=== PATIENT | female | born 1960 | race Caucasian/White ===

== ENCOUNTER 2017-10-11 17:32 | Emergency (ER) | payer OTHER, SELFPAY ==
[2017-10-11 17:40] VITALS: BP 145/101; PULSE 99; RESP 20; TEMP 36.3; O2SAT 99; BMI 29.0
--- NOTE | 2017-10-11 18:32 | DI.RAD.S_ITS ---
PROCEDURE: XR RIBS LT MIN 3V W CXR1V INDICATIONS: fall with posterior L rib pain TECHNIQUE: 2 views of the left ribs were acquired, along with a single view chest. COMPARISON: None. FINDINGS: Surgical changes and devices: None. Bones and chest wall: No fractures or dislocations. No suspicious bony lesions. Overlying soft tissues appear unremarkable. Lungs and pleura: No pleural effusions or pneumothorax. Lungs appear clear. Mediastinum: Mediastinal contours appear normal. Heart size is normal. IMPRESSION: Reduced inspiratory volume bilaterally, no trauma found. The imaging is somewhat limited by reduced inspiration and light film technique. If unusual symptoms persist followup by delayed plain films through the area of concern could be repeated. Dictated by: Greg Valera M.D. on 10/11/2017 at 18:59 Approved by: Greg Valera M.D. on 10/11/2017 at 19:00
[2017-10-11] MEDS: HYDROCODONE/ACET 5/325 TABLET 1 TAB PO (18:39)
--- NOTE | 2017-10-11 19:09 | ED_ITS ---
HPI - Fall General Chief Complaint: Fall Stated Complaint: FELL AND HURT RIBS Time Seen by Provider: 10/11/17 18:00 Source: patient Mode of arrival: ambulatory Limitations: no limitations History of Present Illness HPI Narrative: patient presents to the emergency department this evening with her and a chief complaint left-sided posterior rib pain after mechanical fall earlier today. She denies any head neck pain. She has no shortness of breath and is otherwise well and free of complaint MD complaint: fall Onset (ago): minute(s) Fall from: standing Fall witnessed: yes, by family Place fall occurred: home Loss of consciousness: none Prolonged down time: no Symptoms prior to fall: none Context: tripped/slipped Location of injury: chest Severity: moderate Associated symptoms (after fall): denies Related Data Previous Rx's Medication Instructions Recorded hydrocodone-acetaminophen 1 tab PO Q4-6H PRN #14 tab 10/11/17 ibuprofen 600 mg PO QID PRN #20 tab 10/11/17 Allergies Allergy/AdvReac Type Severity Reaction Status Date / Time No Known Drug Allergies Allergy Verified 10/11/17 17:44 Review of Systems Review of Systems All systems reviewed & are unremarkable except as noted in HPI and below Constitutional Denies chills, Denies fever(s), Denies lethargy and Denies weakness Eyes Denies change in vision, Denies eye discharge, Denies irritation and Denies loss of vision Cardiovascular Denies chest pain, Denies irregular heart rhythm, Denies lightheadedness, Denies palpitations, Denies dyspnea, Denies dyspnea on exertion and Denies orthopnea Respiratory Denies cough, Reports pain on inspiration, Denies dyspnea, Denies dyspnea on exertion and Denies wheezing Gastrointestinal Gastrointestinal: Denies abdominal pain, Denies change in bowel habits, Denies diarrhea, Denies nausea and Denies vomiting Genitourinary Denies hematuria, Denies flank pain, Denies urinary incontinence and Denies urinary urgency Musculoskeletal Denies back pain, Denies muscle weakness, Denies numbness and Denies tingling Integumentary/Breasts Denies pruritus, Denies erythema, Denies rash and Denies wounds Neurologic Denies confusion, Denies loss of vision, Denies numbness, Denies tingling and Denies weakness Psychiatric Denies anxiety, Denies confusion, Denies depression, Denies homicidal ideation and Denies suicidal ideation Endocrine Denies palpitations Allergic/Immunologic Denies wheezing Exam Initial Vital Signs Initial Vital Signs: Vital Signs Temperature 97.3 F L 10/11/17 17:40 Pulse Rate 99 H 10/11/17 17:40 Respiratory Rate 20 10/11/17 17:40 Blood Pressure 145/101 H 10/11/17 17:40 Pulse Oximetry 99 10/11/17 17:40 Const General: cooperative and well developed Nutritional Appearance: well nourished Orientation: alert, awake, oriented x3 and not confused HENOH Head: normocephalic and atraumatic Ears: external ears normal and TM's normal bilaterally Nose: external nose normal and No nasal discharge Face and sinus: sinuses nontender, face symmetric, no sinus tenderness and No dry mucous membranes Mouth: oral mucosae normal and moist mucous membranes Teeth and gingiva: dentition normal Throat: tonsils normal and uvula midline Neck Neck: normal visual inspection, trachea midline, No lymphadenopathy, No midline deformity and No JVD Lymphatic: No lymphedema Chest Chest: localized rib tenderness with anteroposterior compression Resp Effort & Inspection: normal respiratory effort, able to speak in complete sentences, no respiratory distress and no use of accessory muscles Auscultation: clear to auscultation bilaterally, no rales, no rhonchi and no wheezes GI Inspection: non-distended Palpation: soft, no hepatosplenomegaly, No guarding, No pulsatile mass and No tender Auscultation: normal bowel sounds Skin General: no rashes or lesions noted, No jaundice and No petechiae Extrem General: full ROM, no clubbing, cyanosis or edema, no pedal edema and no calf tenderness Psych Appearance: well kempt Mental Status: mental status grossly normal Attitude: cooperative Thought Content: normal and suicidality Judgment: judgment good [facility] Medical History Diabetes 1.5, managed as type 2 (Acute) Fibromyalgia (Acute) HTN (hypertension) (Acute) Social History Smoking Status: Never smoker Course Orders Ordered: ED Orders 10/11/17 18:32 XR ribs LT min 3V w CXR1V Stat Discontinued Medications Hydrocodone Bitart/Acetaminophen ([place] 5/325) 1 tab PO NOW ONE Stop: 10/11/17 18:33 Last Admin: 10/11/17 18:39 Dose: 1 tab Reevaluation(s) Reevaluation #1: slight improvement after Hydrocodone. RT called for incentive spirometer and bedside teaching Time: 19:11 Vital Signs - 8 hr 10/11/17 17:40 10/11/17 19:38 Temperature 97.3 F L Pulse Rate 99 H 105 H Respiratory Rate 20 14 Blood Pressure 145/101 H 164/95 H Pulse Oximetry 99 100 MDM - Fall Imaging Data Chest x-ray: Attestation: I personally reviewed and interpreted this imaging study as follows: My impression: NAP Radiologist's impression: PROCEDURE: XR RIBS LT MIN 3V W CXR1V INDICATIONS: fall with posterior L rib pain TECHNIQUE: 2 views of the left ribs were acquired, along with a single view chest. COMPARISON: None. FINDINGS: Surgical changes and devices: None. Bones and chest wall: No fractures or dislocations. No suspicious bony lesions. Overlying soft tissues appear unremarkable. Lungs and pleura: No pleural effusions or pneumothorax. Lungs appear clear. Mediastinum: Mediastinal contours appear normal. Heart size is normal. IMPRESSION: Reduced inspiratory volume bilaterally, no trauma found. The imaging is somewhat limited by reduced inspiration and light film technique. If unusual symptoms persist followup by delayed plain films through the area of concern could be repeated. Dictated by: Greg Valera M.D. on 10/11/2017 at 18:59 Approved by: Greg Valera M.D. on 10/11/2017 at 19:00 Discharge Plan Departure Patient Disposition: Home, Self-Care Clinical Impression: Contusion of rib on left side Discharge Date/Time: 10/11/17 19:41 Interventions: ED Discharge Assessment Last Done: 10/11/17 19:38 Instructions: DI for Contusion Prescriptions: New hydrocodone-acetaminophen 5-325 mg tablet 1 tab PO Q4-6H PRN (Reason: pain) Qty: 14 RF: 0 ibuprofen 600 mg tablet 600 mg PO QID PRN (Reason: pain) Qty: 20 RF: 0
[2017-10-11 19:38] VITALS: BP 164/95; PULSE 105; RESP 14; O2SAT 100
== END 2017-10-11 19:41 | disposition home or self-care (01) ==
PROVIDERS: Emergency Provider Emergency Medicine
DX: S20.212A Contusion of left front wall of thorax, initial encounter (principal); W19.XXXA Unspecified fall, initial encounter
CPT/HCPCS: 71101; 99282; 99283

== ENCOUNTER 2023-06-30 13:04 | Emergency (ER) | payer OTHER, SELFPAY ==
[2023-06-30 13:25] VITALS: BP 211/96; PULSE 85; RESP 18; TEMP 36.1; O2SAT 96; BMI 29.9
--- NOTE | 2023-06-30 13:38 | PC.NURSE ---
Per provider, patient given the option to have work up or get insulin refilled, patient requested just insulin refill. Provider made aware.
--- NOTE | 2023-06-30 14:10 | ED_ITS ---
HPI - General Adult <Arden Boyer PA-C - Last Filed: 06/30/23 14:19> General Chief complaint: Diabetic Problem Stated complaint: ran out of insulin because of chavez Time Seen by Provider: 06/30/23 13:32 Source: patient Mode of arrival: Ambulatory History of Present Illness HPI narrative: This is a 63-year-old female presents emergency department due to solely a medication refill. She reports taking 25 mg of NPH insulin in the morning and 25 mg at night. She reports some nausea and vomiting but does not want any kind of workup. States that she would only like the refill of her medication so she was able to control her blood sugar and suspect her symptoms will improve. No other symptoms. Related Data Previous Rx's Medication Instructions Recorded hydrocodone 5 mg-acetaminophen 325 1 tab PO Q4-6H PRN pain #14 tabs 10/11/17 mg tablet ibuprofen 600 mg tablet 600 mg PO QID PRN pain #20 tabs 10/11/17 insulin NPH isoph U-100 human 100 25 unit (0.25 mL) SUBCUT BID #10 mL 06/30/23 unit/mL subcutaneous suspension (Humulin N NPH U-100 Insulin (isophane susp)) Allergies Allergy/AdvReac Type Severity Reaction Status Date / Time No Known Drug Allergies Allergy Verified 06/30/23 13:25 Review of Systems <Arden Boyer PA-C - Last Filed: 06/30/23 14:19> Review of Systems Narrative: GENERAL: Denies chills, fatigue, malaise, fever, sweats. HEENT: Denies sinus pain, ear pain, sore throat, difficulty swallowing, dizziness. RESPIRATORY: Denies dyspnea, cough, wheezing, hemoptysis, sputum. CARDIOVASCULAR: Denies chest pain, palpitations, orthopnea, edema, GASTROINTESTINAL: Reports nausea, vomiting, denies abdominal pain, diarrhea, constipation, melena. : Denies dysuria, frequency, incontinence, hematuria, urinary retention. MUSCULOSKELETAL: denies weakness, joint pain, or bony pain SKIN: Denies rash, skin lesions, or other NEUROLOGIC: Denies weakness, headache, numbness, change in speech, confusion, seizures, incoordination. PSYCHIATRIC: No concerning psychosocial issues. 12 point review of systems is negative except for those stated above Patient History <Arden Boyer PA-C - Last Filed: 06/30/23 14:19> Medical History (Updated 06/30/23 @ 14:17 by Arden Boyer PA-C) Fibromyalgia Diabetes 1.5, managed as type 2 HTN (hypertension) Social History Smoking Status: Never smoker Smoking Status: Never smoker Substance Use Type: does not use Exam <Arden Boyer PA-C - Last Filed: 06/30/23 14:19> Narrative Exam Narrative: GENERAL: Well-developed patient, in mild distress. HEAD: Atraumatic. Normocephalic. EYES: Pupils equal round and reactive. Extraocular motions intact. No scleral icterus. No injection or drainage. ENT: Nose without bleeding, purulent drainage. Throat without erythema, tonsillar hypertrophy or exudate. Airway patent. NECK: Trachea midline. Non tender EXTREMITIES: No edema or joint tenderness. NEURO: AOx3. SKIN: No rash or erythema of visible areas Initial Vital Signs Initial Vital Signs: Vital Signs Temperature 97.0 F L 06/30/23 13:25 Pulse Rate 85 06/30/23 13:25 Respiratory Rate 18 06/30/23 13:25 Blood Pressure 211/96 H 06/30/23 13:25 Pulse Oximetry 96 06/30/23 13:25 Oxygen Delivery Method Room Air 06/30/23 13:25 <Anaya Joyner DO - Last Filed: 07/01/23 07:34> Initial Vital Signs Initial Vital Signs: Vital Signs Temperature 97.0 F L 06/30/23 13:25 Pulse Rate 85 06/30/23 13:25 Respiratory Rate 18 06/30/23 13:25 Blood Pressure 211/96 H 06/30/23 13:25 Pulse Oximetry 96 06/30/23 13:25 Oxygen Delivery Method Room Air 06/30/23 13:25 Course <Arden Boyer PA-C - Last Filed: 06/30/23 14:19> Orders Ordered: Discontinued Medications Sodium Chloride (Normal Saline 0.9%) 1,000 mls @ 1,000 mls/hr IV BOLUS ONE Stop: 06/30/23 14:31 Last Admin: 06/30/23 13:46 Dose: Not Given Documented By: ZEV Ondansetron HCl (Ondansetron 4 Mg/2 Ml Inj) 4 mg IV NOW ONE Stop: 06/30/23 13:34 Last Admin: 06/30/23 13:47 Dose: Not Given Documented By: ZEV Vital Signs Vital signs: Vital Signs - 8 hr 06/30/23 13:25 Temperature 97.0 F L Pulse Rate 85 Respiratory Rate 18 Blood Pressure 211/96 H Pulse Oximetry 96 Oxygen Delivery Method Room Air <Anaya Joyner DO - Last Filed: 07/01/23 07:34> Orders Ordered: Discontinued Medications Sodium Chloride (Normal Saline 0.9%) 1,000 mls @ 1,000 mls/hr IV BOLUS ONE Stop: 06/30/23 14:31 Last Admin: 06/30/23 13:46 Dose: Not Given Documented By: ZEV Ondansetron HCl (Ondansetron 4 Mg/2 Ml Inj) 4 mg IV NOW ONE Stop: 06/30/23 13:34 Last Admin: 06/30/23 13:47 Dose: Not Given Documented By: ZEV Vital Signs Vital signs: Vital Signs - 8 hr 06/30/23 13:25 Temperature 97.0 F L Pulse Rate 85 Respiratory Rate 18 Blood Pressure 211/96 H Pulse Oximetry 96 Oxygen Delivery Method Room Air Medical Decision Making <Arden Boyer PA-C - Last Filed: 06/30/23 14:19> Lab Data Labs: Point of Care Testing Glucose POC 355 Point of care testing: Point of Care Testing Glucose POC 355 [facility] Narrative Medical decision making narrative: ED course: This is a 63-year-old female presents emergency department for solely medication refill. Her glucose was found to be roughly 300 and triage and patient was having nausea and vomiting. A full workup and treatment was repeatedly offered to the patient but she declined and requesting solely medication refill. We will refill her medication. Patient will follow up with primary care provider for further refills. CC: Medication refill Complicating co-morbidities: Type 2 diabetes Data collected from: Previous notes Medical records reviewed: Patient was seen here 6 years ago due to a rib injury. History of type 2 diabetes, hypertension, fibromyalgia. Differential considered, but not limited to: Hyperglycemia, DKA, HHS Exam documented above, pertinent findings include: No significant abnormal findings Lab Test results independently reviewed as above. Pertinent findings: None obtained Imaging studies independently reviewed: None obtained Scores Used: None MIPS Elements: None Consultations: None Treatments: None Re-evaluations: None Discussion: Discussed plan with the patient was comfortable with the plan Diagnosis: Medication refill Disposition: see below, along with detailed discharge instructions that have been reviewed with patient as well as indications for ED re-evaluation and additional outpatient follow up <Anaya Joyner DO - Last Filed: 07/01/23 07:34> Lab Data Labs: Point of Care Testing Glucose POC 355 Point of care testing: Point of Care Testing Glucose POC 355 Discharge Plan Departure Patient Disposition: Home Clinical Impression: Diabetes mellitus Instructions: DI for Diabetes Type 2 Activity Restrictions/Additional Instructions: Thank you for coming to the [facility] Emergency Department today. Please take the medications prescribed and follow up with the primary care provider for further refills. I sent your medication to [facility] in [place]. Please return to the emergency department if you develop any significant abdominal pain, altered mental status, or any other concerning signs or symptoms. I hope you feel better soon. Please follow up with your primary care provider within a week if your symptoms continue. If you do not have a primary care provider please contact the [facility] Resource line at [phone]. They will ask some questions about your medical history and help you get set up with a provider in the community. Prescriptions: New Humulin N NPH U-100 Insulin 100 unit/mL suspension 25 unit SUBCUT BID Qty: 10 0RF No Action hydrocodone-acetaminophen 5-325 mg tablet 1 tab PO Q4-6H PRN (Reason: pain) Qty: 14 0RF ibuprofen 600 mg tablet 600 mg PO QID PRN (Reason: pain) Qty: 20 0RF Stand Alone Forms: Patient Portal/API ED Sign-out <Anaya Joyner DO - Last Filed: 07/01/23 07:34> Cosign ED Attending Lynneature Attestation: I was immediately available in the department for consultation. Labs were ordered via triage based on patient's symptoms but patient politely refused.
[2023-06-30 14:26] VITALS: BP 185/91
== END 2023-06-30 14:26 | disposition home or self-care (01) ==
PROVIDERS: Emergency Provider Physician Assistant Medical
DX: E11.9 Type 2 diabetes mellitus without complications (principal)
CPT/HCPCS: 82962; 99281

== ENCOUNTER 2024-03-17 22:35 | Emergency (ER) | payer OTHER, SELFPAY ==
[2024-03-17] VITALS (7 sets, daily range): BP systolic 223–268; BP diastolic 107–132; PULSE 97–102; RESP 17–18; TEMP 35.7; O2SAT 96–98; BMI 33.9
--- NOTE | 2024-03-17 22:59 | ED.NEUROSD ---
HPI - Neuro Symptoms/Deficit General Chief Complaint: Neuro Symptoms/Deficit Stated Complaint: thinks bells palsy Time Seen by Provider: 03/17/24 22:39 Source: patient Mode of arrival: Ambulatory History of Present Illness HPI Narrative: Patient is a 64-year-old female. History of insulin-dependent diabetes and hypertension who is here for evaluation of a left-sided facial droop. She states that her symptoms started yesterday. She thinks that this morning things seemed to get somewhat worse. She thinks she was Key's palsy. Has never been diagnosed with Key's palsy in the past. No vision changes but is having some irritation of the left eye. She reports no sensory difficulties. No upper lower extremity neurologic symptoms. No chest pain or shortness of breath. No balance issues. No headache. No sinus congestion or sore throat or ear pain. No skin rashes. On Anticoagulants: No (aspirin 81mg) Related Data Previous Rx's Medication Instructions Recorded hydrocodone 5 mg-acetaminophen 325 1 tab PO Q4-6H PRN pain #14 tabs 10/11/17 mg tablet ibuprofen 600 mg tablet 600 mg PO QID PRN pain #20 tabs 10/11/17 insulin NPH isoph U-100 human 100 25 unit (0.25 mL) SUBCUT BID #10 mL 06/30/23 unit/mL subcutaneous suspension (Humulin N NPH U-100 Insulin (isophane susp)) prednisone 20 mg tablet 60 mg (3 x 20 mg) PO DAILY 6 days 03/18/24 #18 tabs prednisone 20 mg tablet 60 mg (3 x 20 mg) PO DAILY 6 days 03/18/24 #18 tabs valacyclovir 1 gram tablet 1,000 mg PO TID 7 days #21 tabs 03/18/24 valacyclovir 1 gram tablet 1,000 mg PO TID 7 days #21 tabs 03/18/24 Allergies Allergy/AdvReac Type Severity Reaction Status Date / Time No Known Drug Allergies Allergy Verified 06/30/23 13:25 Review of Systems Review of Systems Narrative: See HPI Hematologic/Lymphatic On Anticoagulants: No (aspirin 81mg) Patient History Medical History Fibromyalgia Diabetes 1.5, managed as type 2 HTN (hypertension) Social History Smoking Status: Never smoker Smoking Status: Never smoker Substance Use Type: does not use and other Exam Initial Vital Signs Initial Vital Signs: Vital Signs Blood Pressure 268/132 H 03/17/24 22:40 HENMT Head: normal to inspection Eyes Other: Irritation to the left eye Resp Effort & Inspection: normal respiratory effort Skin General: no rashes or lesions noted Neuro Cognition: normal cognition Speech: speech normal Gait: normal gait Motor: muscle tone normal throughout Sensory Exam: no sensory deficits noted Other: Patient with drooping of the left side of the face to include the forehead and lower portion of the face. No sensory deficits noted. Extrem General: normal to inspection Scores GCS [place] coma scale eye opening: Spontaneous [place] coma scale verbal response: Orientated [place] coma scale motor response: Obey commands [place] coma scale total score: 15 Course Orders Ordered: ED Orders 03/17/24 23:00 CT head/brain wo con Stat Discontinued Medications Prednisone (Prednisone 20 Mg Tablet) 60 mg PO NOW ONE Stop: 03/18/24 00:10 Last Admin: 03/18/24 00:19 Dose: 60 mg Documented By: MARIA ELENA Valacyclovir HCl (Valacyclovir 500 Mg Tablet) 1,000 mg PO NOW ONE Stop: 03/18/24 00:10 Last Admin: 03/18/24 00:19 Dose: 1,000 mg Documented By: MARIA ELENA Vital Signs Vital signs: Vital Signs - 8 hr 03/17/24 22:40 03/17/24 22:41 03/17/24 22:43 Temperature 96.3 F L Pulse Rate 102 H 97 H Respiratory Rate 18 Blood Pressure 268/132 H 268/132 H Pulse Oximetry 98 96 Oxygen Delivery Method Room Air Room Air 03/17/24 23:16 03/17/24 23:17 03/17/24 23:17 Temperature Pulse Rate 101 H 101 H Respiratory Rate 18 Blood Pressure 235/114 H Pulse Oximetry 97 97 Oxygen Delivery Method Room Air Room Air 03/17/24 23:30 03/17/24 23:39 03/17/24 23:39 Temperature Pulse Rate 100 H 97 H Respiratory Rate 17 Blood Pressure 223/107 H Pulse Oximetry 96 97 Oxygen Delivery Method Room Air 03/18/24 00:00 03/18/24 00:00 Temperature Pulse Rate 94 H Respiratory Rate 18 Blood Pressure 192/91 H Pulse Oximetry 96 Oxygen Delivery Method MDM - Neuro Symptoms/Deficit Imaging Data CT scan - head: Radiologist's Impression: PROCEDURE: CT HEAD/BRAIN WO CON INDICATIONS: HTN and L sided facial droop TECHNIQUE: Noncontrast 4.5 mm thick angled axial sections acquired from the foramen magnum to the vertex, with coronal and sagittal reformats. For radiation dose reduction, the following was used: automated exposure control, adjustment of mA and/or kV according to patient size. COMPARISON: None. FINDINGS: Image quality: Diagnostic. CSF spaces: Basal cisterns are patent. No extra-axial fluid collections. The ventricles are symmetric in size and shape. Brain: No intracranial bleeds or masses. There is cerebral volume loss for age, with resultant ventricular and sulcal prominence. There are periventricular and deep white matter chronic small vessel ischemic changes. There is intracranial internal carotid artery atherosclerosis. Skull and face: Calvarium and visualized facial bones appear intact, without suspicious lesions. Sinuses: Visualized sinuses and mastoids are clear. IMPRESSION: 1. CT head without acute intracranial abnormalities or acute calvarial fractures. 2. Age-related senescent changes and sequela of chronic small vessel ischemic disease. [facility] Narrative Medical decision making narrative: Patient was significantly hypertensive upon arrival. She stated that this happens often when she comes to a medical facility. She denies chest pain or shortness of breath. The blood pressure improved without specific intervention here in the ER. 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 It was a motor deficit to the left side of her face. It does involve her forehead. Her head CT is unremarkable. Her symptoms been present for 24 hours. Her symptoms are consistent with a moderate to severe classification. Because of this we will start her on steroids. First dose given here in the ER. We will also start her on valacyclovir given the nature of her presentation. First dose given here in the emergency department as well. Patient would like to go. Patient was given return precautions and follow-up instructions. She expressed understanding and agreement with plan. Discharge Plan Departure Patient Disposition: Home Clinical Impression: Key's palsy, Hypertension Instructions: DI for [place] Palsy Activity Restrictions/Additional Instructions: Recommend that you take the steroids and the antiviral medication as directed. Contact your primary care doctor for a follow-up. Return to the emergency department for new or worsening symptoms. Prescriptions: New prednisone 20 mg tablet 60 mg PO DAILY 6 Days Qty: 18 0RF valacyclovir 1 gram tablet 1,000 mg PO TID 7 Days Qty: 21 0RF prednisone 20 mg tablet 60 mg PO DAILY 6 Days Qty: 18 0RF valacyclovir 1 gram tablet 1,000 mg PO TID 7 Days Qty: 21 0RF No Action Humulin N NPH U-100 Insulin 100 unit/mL suspension 25 unit SUBCUT BID Qty: 10 0RF hydrocodone-acetaminophen 5-325 mg tablet 1 tab PO Q4-6H PRN (Reason: pain) Qty: 14 0RF ibuprofen 600 mg tablet 600 mg PO QID PRN (Reason: pain) Qty: 20 0RF Stand Alone Forms: Patient Portal/API/Survey
[2024-03-18] VITALS: BP 192/91; PULSE 94; RESP 18; O2SAT 96
[2024-03-18] MEDS: valACYclovir 500 MG TABLET 1000 MG PO (00:19)
[2024-03-18] MEDS: predniSONE 20 MG TABLET 60 MG PO (00:19)
== END 2024-03-18 00:27 | disposition home or self-care (01) ==
PROVIDERS: Emergency Provider Emergency Medicine
DX: G51.0 Bell's palsy (principal); I10 Essential (primary) hypertension
CPT/HCPCS: 70450; 99284